=== PATIENT | female | born 1975 | race Caucasian/White ===

== ENCOUNTER → 2017-02-02 | Outpatient (CLI) | payer OTHER ==
[~2017-02-02] MED LIST: CHOL10002 PO; MULT-516 PO; OMEP-110 PO; OMEPRAZOLE PO
== END | disposition home or self-care (01) ==
LOC: CFH 07:34
PROVIDERS: ATTEND Family Medicine
DX: N64.4 Mastodynia (principal); N63 Unspecified lump in breast
CPT/HCPCS: 76641; G0204